=== PATIENT | female | born 1985 | race Caucasian/White ===

== ENCOUNTER → 2018-02-23 08:41 | Outpatient (CLI) | payer OTHER, SELFPAY | PROVIDERS: Visit Provider Physician Assistant | DX: N30.01 Acute cystitis with hematuria (principal) | CPT/HCPCS: 87086 ==

== ENCOUNTER 2020-11-01 19:04 | Emergency (ER) | payer OTHER, SELFPAY ==
[2020-11-01] VITALS (8 sets, daily range): BP systolic 119–129; BP diastolic 75–83; PULSE 79–97; RESP 0–23; TEMP 36.3; O2SAT 100
--- NOTE | 2020-11-01 19:18 | DI.RAD.S_ITS ---
PROCEDURE: XR CHEST 1V INDICATIONS: chest pain TECHNIQUE: One view of the chest was acquired. COMPARISON: None. FINDINGS: Surgical changes and devices: None. Lungs and pleura: Lungs are clear. No pleural effusions or pneumothorax. Mediastinum: Mediastinal contours appear normal. Heart size is normal. Bones and chest wall: No suspicious bony lesions. Overlying soft tissues appear unremarkable. IMPRESSION: No acute disease. Dictated by: Pradeep Guillen M.D. on 11/01/2020 at 19:50 Approved by: Pradeep Guillen M.D. on 11/01/2020 at 19:51
--- NOTE | 2020-11-01 19:30 | ED.CHESTPAIN ---
HPI - Chest Pain General Chief Complaint: Chest Pain Stated Complaint: chest pain, hurts to breath, cant take full breath Time Seen by Provider: 11/01/20 19:09 Source: patient Mode of arrival: Ambulatory Limitations: no limitations History of Present Illness HPI narrative: 35-year-old female nonsmoker without significant medical history presents with her in the chief complaint of ongoing left anterior chest pain which has been present for at least the past week or so. She states her pain is made worse by deep breaths, palpation as well as leaning forward. She states that improves with rest. She states the pain is sharp and stabbing and very reproducible. She states at its most the pain is a 7/10, she denies any radiation of her discomfort. She denies associated symptoms such as dizziness, weakness or lightheadedness. She has had no fever, chills nor hemoptysis. She denies recent travel, history of blood clot or any type of cancer. She denies any injury or overuse. She has not recently been ill with any viral upper respiratory infection Related Data Previous Rx's Medication Instructions Recorded ketorolac 10 mg PO Q6H PRN #14 tab 11/01/20 prednisone See Rx Instructions .ROUTE 11/01/20 .COMPLEX #30 tab Allergies Allergy/AdvReac Type Severity Reaction Status Date / Time No Known Drug Allergies Allergy Verified 11/01/20 19:17 Review of Systems Constitutional Constitutional: Denies chills, Denies fatigue, Denies fever(s), Denies frequent falls, Denies lethargy and Denies weakness Eyes Eyes: Denies change in vision, Denies eye discharge, Denies irritation and Denies loss of vision ENT Ears, Nose, Mouth, and Throat: Denies change in voice, Denies dizziness, Denies neck pain, Denies sore throat and Denies throat swelling Cardiovascular Cardiovascular: Reports chest pain, Denies irregular heart rhythm, Denies lightheadedness, Denies palpitations, Denies dyspnea, Denies dyspnea on exertion and Denies orthopnea Respiratory Respiratory: Denies cough, Denies dyspnea, Denies dyspnea on exertion and Denies wheezing Gastrointestinal Gastrointestinal: Denies abdominal pain, Denies change in bowel habits, Denies diarrhea, Denies nausea and Denies vomiting Musculoskeletal Musculoskeletal: Denies neck pain and Denies numbness Integumentary/Breasts Skin/Breast: Denies pruritus, Denies erythema, Denies rash and Denies wounds Neurologic Neurologic: Denies behavioral changes, Denies confusion, Denies dizziness, Denies frequent falls, Denies loss of vision, Denies numbness and Denies weakness Psychiatric Psychiatric: Denies anxiety, Denies behavioral changes, Denies confusion, Denies depression, Denies homicidal ideation and Denies suicidal ideation Endocrine Endocrine: Denies fatigue, Denies flushing and Denies palpitations Hematologic/Lymphatic Hematologic/Lymphatic: Denies easy bruising Allergic/Immunologic Allergic/Immunologic: Denies urticaria, Denies throat swelling and Denies wheezing Patient History Social History Smoking Status: Never smoker Smoking Status: Never smoker alcohol intake frequency: other Substance Use Type: does not use Exam Narrative Exam Narrative: GENERAL: [35] year old patient appears stated age. Well-nourished, well-developed patient, in mild distress. Anxious, tearful, rubbing her left anterior chest, leaning forward on the cart HEAD: Atraumatic. Normocephalic. EYES: Pupils equal round and reactive. Extraocular motions intact. No scleral icterus. No injection or drainage. ENT: Nose without bleeding, purulent drainage. Throat without erythema, tonsillar hypertrophy or exudate. Airway patent. NECK: Trachea midline. Non tender CARDIOVASCULAR: Regular rate and rhythm without murmurs, gallops, or rubs. RESPIRATORY: Clear to auscultation. Breath sounds equal bilaterally. No wheezes, rales, or rhonchi. GASTROINTESTINAL: Abdomen soft, non-tender, nondistended. EXTREMITIES: No edema or joint tenderness. BACK: Nontender without deformity or crepitance. No flank tenderness. NEURO: AOx3. SKIN: No rash or erythema of visible areas Initial Vital Signs Initial Vital Signs: Vital Signs Temperature 97.4 F L 11/01/20 19:13 Pulse Rate 97 H 11/01/20 19:13 Respiratory Rate 20 11/01/20 19:13 Blood Pressure 129/75 11/01/20 19:13 Pulse Oximetry 100 11/01/20 19:13 Scores HEART Score Heart Score history: Slightly Suspicious Heart Score EKG: Normal Heart Score Age: < 45 years old Heart Score risk factors: No known risk factors Heart Score troponin: < or = to normal limit Heart Score Total: 0 Course Orders Ordered: Discontinued Medications Sodium Chloride (Normal Saline 0.9%) 1,000 mls @ 1,000 mls/hr IV BOLUS ONE Stop: 11/01/20 20:30 Last Admin: 11/01/20 19:53 Dose: Not Given Documented by: CHARLIE Ketorolac Tromethamine (Ketorolac 60 Mg/2 Ml Vial) 30 mg IM NOW ONE Stop: 11/01/20 21:32 Last Admin: 11/01/20 21:49 Dose: 30 mg Documented by: DELANEY Prednisone (Prednisone 20 Mg Tablet) 40 mg PO NOW ONE Stop: 11/01/20 21:32 Last Admin: 11/01/20 21:49 Dose: 40 mg Documented by: DELANEY Vital Signs Vital signs: Vital Signs - 8 hr 11/01/20 19:13 Temperature 97.4 F L Pulse Rate 97 H Respiratory Rate 20 Blood Pressure 129/75 Pulse Oximetry 100 MDM - Chest Pain Lab Data Result diagrams: 11/01/20 20:21 11/01/20 20:21 Labs: Lab Results 11/01/20 11/01/20 11/01/20 Range/Units 20:21 20:21 20:21 WBC 7.7 (4.5-11.0) X10^3/uL RBC 5.26 H (4.0-5.2) X10^6/uL Hgb 15.7 (12.0-16.0) g/dL Hct 45.5 (36-46) % MCV 86.5 (80-100) fL MCH 29.9 (26-34) PG MCHC 34.5 (30-36) % RDW 14.4 (11.6-14.8) % Plt Count 271 (150-400) X10^3/uL Neut % (Auto) 53.0 (50-75) % Lymph % (Auto) 34.9 (25-40) % [place] % (Auto) 8.2 (3-14) % Eos % (Auto) 3.1 (2-4) % Baso % (Auto) 0.8 (0-2) % Neut # (Auto) 4100 (5032-3118) /uL Lymph # (Auto) 2700 (2230-2982) /uL [place] # (Auto) 600 (0-900) /uL Eos # (Auto) 200 (0-450) /uL Baso # (Auto) 100 (0-100) /uL PT 12.5 (10.1-12.7) SECONDS INR 1.1 (0.9-1.3) APTT 34 (26.4-36.2) SECONDS D-Dimer (<230) ng/mL Sodium 138 (137-145) mmol/L Potassium 3.8 (3.4-5.1) mmol/L Chloride 101 (98-107) mmol/L Carbon Dioxide 27 (22-32) mmol/L BUN 15 (7-17) mg/dL Creatinine 0.54 (0.52-1.04) mg/dL Estimated GFR > 60.0 (>60) mL/min BUN/Creatinine Ratio 27.8 H (6-22) Glucose 88 (70-100) mg/dL Calcium 9.7 (8.4-10.2) mg/dL Total Bilirubin 0.3 (0.2-1.3) mg/dL AST 29 (14-36) IU/L ALT 19 (<35) IU/L Alkaline Phosphatase 94 (38-126) U/L Total Creatine Kinase 54 (30-135) U/L CK-MB (CK-2) TNP CK-MB (CK-2) Rel Index TNP Troponin I < 0.012 (0.01-0.034) ng/mL C-Reactive Protein (<1.0) mg/dL Total Protein 8.0 (6.3-8.2) g/dL Albumin 4.3 (3.5-5.0) g/dL Globulin 3.7 (1.7-4.1) g/dL Albumin/Globulin Ratio 1.2 (1.0-2.8) Lipase 54 (23-300) U/L 11/01/20 11/01/20 Range/Units 20:21 20:21 WBC (4.5-11.0) X10^3/uL RBC (4.0-5.2) X10^6/uL Hgb (12.0-16.0) g/dL Hct (36-46) % MCV (80-100) fL MCH (26-34) PG MCHC (30-36) % RDW (11.6-14.8) % Plt Count (150-400) X10^3/uL Neut % (Auto) (50-75) % Lymph % (Auto) (25-40) % [place] % (Auto) (3-14) % Eos % (Auto) (2-4) % Baso % (Auto) (0-2) % Neut # (Auto) (9468-5792) /uL Lymph # (Auto) (7141-9522) /uL [place] # (Auto) (0-900) /uL Eos # (Auto) (0-450) /uL Baso # (Auto) (0-100) /uL PT (10.1-12.7) SECONDS INR (0.9-1.3) APTT (26.4-36.2) SECONDS D-Dimer 258 H (<230) ng/mL Sodium (137-145) mmol/L Potassium (3.4-5.1) mmol/L Chloride (98-107) mmol/L Carbon Dioxide (22-32) mmol/L BUN (7-17) mg/dL Creatinine (0.52-1.04) mg/dL Estimated GFR (>60) mL/min BUN/Creatinine Ratio (6-22) Glucose (70-100) mg/dL Calcium (8.4-10.2) mg/dL Total Bilirubin (0.2-1.3) mg/dL AST (14-36) IU/L ALT (<35) IU/L Alkaline Phosphatase (38-126) U/L Total Creatine Kinase (30-135) U/L CK-MB (CK-2) CK-MB (CK-2) Rel Index Troponin I (0.01-0.034) ng/mL C-Reactive Protein 5.0 H (<1.0) mg/dL Total Protein (6.3-8.2) g/dL Albumin (3.5-5.0) g/dL Globulin (1.7-4.1) g/dL Albumin/Globulin Ratio (1.0-2.8) Lipase (23-300) U/L Imaging Data Chest x-ray: Radiologist's Impression: [address] [id number] ReportSigned Patient: Sita Arriaza MMR#: [id number]: 1985Acct:[id number]/Sex: 35 / FDate of Service: 11/01/20Loc: EDAccession Number: [id number] Procedure: XR chest 1V Ordering Provider: Michael Jarquin D.O. PROCEDURE: XR CHEST 1V INDICATIONS: chest pain TECHNIQUE: One view of the chest was acquired. COMPARISON: None. FINDINGS: Surgical changes and devices: None. Lungs and pleura: Lungs are clear. No pleural effusions or pneumothorax. Mediastinum: Mediastinal contours appear normal. Heart size is normal. Bones and chest wall: No suspicious bony lesions. Overlying soft tissues appear unremarkable. IMPRESSION: No acute disease. Dictated by: Pradeep Guillen M.D. on 11/01/2020 at 19:50 Approved by: Pradeep Guillen M.D. on 11/01/2020 at 19:51 MDM Narrative Medical decision making narrative: Multiple diagnoses considered including cardiac ischemia which is thought unlikely given lack of provocation, radiation, squeezing type pain, elevated troponin, ischemic changes on EKG. Pulmonary embolism considered but thought unlikely given negative D-dimer. Pericarditis thought likely given sharp, stabbing reproducible pain with deep breath, worse laying flat improved sitting forward. There are no widespread ST changes, LA depressions however. Other diagnoses such as pneumothorax, aortic dissection, versus other considered but thought unlikely given patient's history, exam and diagnostic findings. Extensive return precautions given to the patient and questions answered to their apparent satisfaction. Discharge Plan Departure Patient Disposition: Home Clinical Impression: Atypical chest pain Instructions: DI for Atypical Chest Pain Activity Restrictions/Additional Instructions: *You have been diagnosed with [atypical chest pain. Physical exam, labs, imaging and EKG are most consistent with an inflammatory condition, possibly pericarditis.] *What to do: *Take medications as directed: Given the NSAIDs have not helped too much I have added a course of steroids which has been sent to your pharmacy *Follow up with your primary care provider in 2-3 days, call for an appointment. Let them know you were seen in the Emergency Department and that we ask that you be seen in follow up *Return to ER if you should have any new, worsening or concerning symptoms, such as [shortness of breath, fever, shaking chills, coughing up blood or other bothersome symptoms] Prescriptions: New prednisone 10 mg tablet See Rx Instructions .ROUTE .COMPLEX Qty: 30 RF: 0 ketorolac 10 mg tablet 10 mg PO Q6H PRN (Reason: pain) Qty: 14 RF: 0
[2020-11-01 20:29] LABS: Add Manual Diff / Slide Review NO; Basophils Absolute Auto 100 /uL (0-100); Basophils Percent Auto 0.8 % (0-2); Eosinophils Absolute Auto 200 /uL (0-450); Eosinophils Percent Auto 3.1 % (2-4); Hematocrit 45.5 % (36-46); Hemoglobin 15.7 g/dL (12.0-16.0); Lymphocytes Absolute Auto 2700 /uL (1100-4500); Lymphocytes Percent Auto 34.9 % (25-40); Mean Corpuscular HGB Conc 34.5 % (30-36); Mean Corpuscular Hemoglobin 29.9 PG (26-34); Mean Corpuscular Volume 86.5 fL (80-100); Monocytes Absolute Auto 600 /uL (0-900); Monocytes Percent Auto 8.2 % (3-14); Neutrophils Absolute Auto 4100 /uL (1500-7000); Platelet Count 271 X10^3/uL (150-400); Red Blood Cell Count 5.26 X10^6/uL (4.0-5.2); Red Cell Distribution Width 14.4 % (11.6-14.8); White Blood Cell Count 7.7 X10^3/uL (4.5-11.0)
[2020-11-01 20:39] LABS: INR 1.1 (0.9-1.3); Prothrombin Time 12.5 SECONDS (10.1-12.7)
[2020-11-01 20:42] LABS: PTT Partial Thromboplastin Tim 34 SECONDS (26.4-36.2)
[2020-11-01 20:45] LABS: Alanine Aminotransferase 19 IU/L (<35); Albumin 4.3 g/dL (3.5-5.0); Albumin Globulin Ratio 1.2 (1.0-2.8); Alkaline Phosphatase 94 U/L (38-126); Aspartate Aminotransferase 29 IU/L (14-36); BUN Creatinine Ratio 27.8 (6-22); Bilirubin Total 0.3 mg/dL (0.2-1.3); Blood Urea Nitrogen 15 mg/dL (7-17); Calcium 9.7 mg/dL (8.4-10.2); Carbon Dioxide 27 mmol/L (22-32); Chloride 101 mmol/L (98-107); Creatine Kinase 54 U/L (30-135); Estimated Glomerular Filt Rate > 60.0 mL/min (>60); Globulin 3.7 g/dL (1.7-4.1); Glucose 88 mg/dL (70-100); HEMOLYSIS < 15 (0-50); Lipase 54 U/L (23-300); Potassium 3.8 mmol/L (3.4-5.1); Sodium 138 mmol/L (137-145)
[2020-11-01 20:53] LABS: D Dimer 258 ng/mL (<230)
[2020-11-01 20:57] LABS: Troponin I < 0.012 ng/mL (0.01-0.034)
[2020-11-01] MEDS: predniSONE 20 MG TABLET 40 MG PO (21:49)
[2020-11-01] MEDS: KETOROLAC 60 MG/2 ML VIAL 30 MG IM (21:49)
== END 2020-11-01 22:06 | disposition home or self-care (01) ==
PROVIDERS: Emergency Provider Emergency Medicine
DX: R07.89 Other chest pain (principal)
CPT/HCPCS: 71045; 80053; 82550; 83690; 84484; 85025; 85379; 85610; 85730; 86140; 93005; 93010; 96372; 99284; J1885

== ENCOUNTER → 2025-02-02 11:22 | Outpatient (CLI) | payer OTHER, SELFPAY | PROVIDERS: Visit Provider Registered Nurse | DX: R30.0 Dysuria (principal) | CPT/HCPCS: 87086 ==

== ENCOUNTER 2025-02-02 12:05 | Emergency (ER) | payer OTHER, SELFPAY ==
[2025-02-02] VITALS (7 sets, daily range): BP systolic 98–125; BP diastolic 1–81; PULSE 69–95; RESP 16; TEMP 36.5; O2SAT 99–100; BMI 25.4
[2025-02-02] MEDS: ONDANSETRON 4 MG/2 ML INJ IV (12:39)
[2025-02-02] MEDS: KETOROLAC 30 MG/ML VIAL 15 MG IV (12:39)
[2025-02-02 12:45] LABS: Add Manual Diff / Slide Review NO; Hematocrit 42.6 % (36-46); Hemoglobin 15.0 g/dL (12.0-16.0); Lymphocytes Absolute Auto 2800 /uL (1100-4500); Mean Corpuscular HGB Conc 35.2 % (30-36); Mean Corpuscular Hemoglobin 31.0 PG (26-34); Mean Corpuscular Volume 88.0 fL (80-100); Platelet Count 253 X10^3/uL (150-400)
[2025-02-02 12:59] LABS: Alanine Aminotransferase 16 IU/L (<35); Albumin 4.8 g/dL (3.5-5.0); Albumin Globulin Ratio 1.5 (1.0-2.8); Alkaline Phosphatase 56 U/L (38-126); Blood Urea Nitrogen 9 mg/dL (7-17); Calcium 9.5 mg/dL (8.4-10.2); Carbon Dioxide 22 mmol/L (22-32); Chloride 104 mmol/L (98-107); Estimated Glomerular Filt Rate > 60 mL/min (>60); Globulin 3.3 g/dL (1.7-4.1); Glucose 83 mg/dL (70-99); HEMOLYSIS 94 (0-50); Potassium 4.6 mmol/L (3.4-5.1); Sodium 137 mmol/L (137-145); Total Protein 8.1 g/dL (6.3-8.2)
--- NOTE | 2025-02-02 15:03 | DI.CT.S_ITS ---
PROCEDURE: CT KIDNEY URETER BLADDER (KUB) INDICATIONS: flank pain, hx of stones TECHNIQUE: Axial sections were acquired from the lung bases to the pubic symphysis. Coronal and sagittal reformats were performed. For radiation dose reduction, the following was used: automated exposure control, adjustment of mA and/or kV according to patient size. COMPARISON: None. FINDINGS: Image quality: Diagnostic. Lower Chest: No significant findings. URINARY: Right Kidney: No stones or hydronephrosis. Right Ureter: No hydroureter. Left Kidney: No stones or hydronephrosis. Left Ureter: No hydroureter. Bladder: Normal wall thickness. No stones. ABDOMEN: Liver: No contour-deforming solid mass. Gallbladder: No radiopaque gallstones or wall thickening. Biliary ducts: No biliary dilation. Pancreas: No ductal dilation. Spleen: Size is within normal limits. Adrenal Glands: No adrenal nodules. Stomach and Bowel: Normal colonic caliber, without significant wall thickening. No dilated loops of small bowel are seen. A normal appendix is noted. Peritoneum: No abnormal intraperitoneal fluid. No free air. Ventral Wall: No hernia. Abdominal Nodes: No enlarged retroperitoneal or mesenteric lymph nodes. Vessels: Aorta and inferior vena cava are normal in size. PELVIS: Pelvic Organs: The IUD is seen at its expected location. Pelvic Nodes: Unremarkable. Miscellaneous: No inguinal hernias are seen. Bones: Unremarkable. IMPRESSION: No obstructing stones or hydronephrosis. Normal appendix. Additional findings: IUD Dictated by: Adryan John M.D. on 02/02/2025 at 15:52 Approved by: Adryan John M.D. on 02/02/2025 at 15:53
[2025-02-02 15:49] LABS: Appearance Urine UA CLEAR; Bilirubin Urine UA NEGATIVE (NEGATIVE); Color Urine UA YELLOW; Glucose Urine UA NEGATIVE (Negative); Ketones Urine UA NEGATIVE (NEGATIVE); Leukocyte Esterase Urine UA NEGATIVE (NEGATIVE); Nitrite Urine UA NEGATIVE (Negative); Occult Blood Urine UA TRACE-INTACT (Negative); Protein Urine UA NEGATIVE (Negative); Specific Gravity Urine UA <=1.005 (1.000-1.035); Urobilinogen Urine UA 0.2 E.U./dL (0.2); pH Urine UA 6.0 (4.5-8.0)
[2025-02-02 15:55] LABS: Culture Indicated Urine Cult Not Indicated
--- NOTE | 2025-02-02 16:39 | ED_ITS ---
HPI - Back Pain/Injury General Chief Complaint: Back Pain/Injury Stated Complaint: sent from [facility] for possible kidney stones Time Seen by Provider: 02/02/25 12:31 Source: patient History of Present Illness HPI Narrative: Pt presents to the ER with a past medical history significant for kidney stones requiring lithotripsy 16 years ago. The patient, Sita, a 39-year-old female, reports left-sided pain that started last night. She describes the pain as located almost underneath my rib on the left side, not yet extending to the lower abdomen. The patient also complains of nausea without actual vomiting and reports some diarrhea. She initially experienced burning with urination, but this symptom improved after taking Azo. Sita consulted with a tele doctor last night who prescribed Macrobid for a suspected UTI. She took the first dose this morning. The patient has an IUD in place for control and reports that her last menstrual period started on Wednesday. She denies fever, vaginal discharge, cough, or shortness of breath. Sita reports occasional alcohol use during holidays but denies regular alcohol consumption or recreational drug use. Related Data Home Medications ?Medication ?Instructions ?Recorded ?Confirmed levothyroxine 50 mcg tablet 50 mcg PO QAM 02/02/25 metformin 500 mg tablet,extended mg PO 02/02/25 release 24 hr nitrofurantoin 1 cap PO BID 02/02/25 monohydrate/macrocrystals 100 mg capsule phentermine 37.5 mg tablet 18.75 mg PO DAILY 02/02/25 02/02/25 Previous Rx's ?Medication ?Instructions ?Recorded cyclobenzaprine 10 mg tablet 10 mg PO TID PRN muscle s pasm #15 02/02/25 tabs Allergies Allergy/AdvReac Type Severity Reaction Status Date / Time No Known Drug Allergies Allergy Verified 02/02/25 12:14 Patient History Social History Smoking Status: Never smoker Smoking Status: Never smoker alcohol intake frequency: other Exam Narrative Exam Narrative: VS as noted above Focused physical exam as follows: General: Well developed, well nourished, no acute distress HEENT: pink palpebral conjunctiva, anicteric sclera, MANUELA, moist mucous membranes, no JVD, no cervical lymphadenopathy Lungs: no respiratory distress, clear to auscultation without wheezes or crackles; equal breath sounds Heart: normal rate, regular rhythm, no appreciable murmurs Abdomen: soft, nontender, no rebound or rigidity Musculoskeletal: no gross deformities with full ROM in all extremities, no pedal edema; mild tenderness over the Left flank/iliocostalis region but none over the C, T or Lspine Skin: pink, warm; no rashes Neuro:? AAOx3, GCS 15, nonfocal exam Psyche: no SI/HI, normal affect Initial Vital Signs Initial Vital Signs: Vital Signs Temperature 97.7 F 02/02/25 12:14 Pulse Rate 95 H 02/02/25 12:14 Respiratory Rate 16 02/02/25 12:14 Blood Pressure 114/1 L 02/02/25 12:14 Pulse Oximetry 100 02/02/25 12:14 Oxygen Delivery Method Room Air 02/02/25 12:14 Course Orders Ordered: Discontinued Medications Hydromorphone HCl (Hydromorphone Hcl 0.5 Mg/0.5 Ml Syringe) 0.5 mg IV NOW ONE Stop: 02/02/25 15:03 Last Admin: 02/02/25 15:14 Dose: 0.5 mg Documented By: SIMON Ketorolac Tromethamine (Ketorolac 30 Mg/Ml Vial) 15 mg IV NOW ONE Stop: 02/02/25 12:25 Last Admin: 02/02/25 12:39 Dose: 15 mg Documented By: JACOBO Ondansetron HCl (Ondansetron 4 Mg/2 Ml Inj) 4 mg IV NOW ONE Stop: 02/02/25 12:25 Last Admin: 02/02/25 12:39 Dose: 4 mg Documented By: JACOBO Vital Signs Vital signs: Vital Signs - 8 hr 02/02/25 12:14 02/02/25 14:52 02/02/25 14:52 Temperature 97.7 F Pulse Rate 95 H 89 Respiratory Rate 16 Blood Pressure 114/1 L 125/70 Pulse Oximetry 100 100 Oxygen Delivery Method Room Air 02/02/25 15:00 02/02/25 15:00 02/02/25 15:30 Temperature Pulse Rate 82 Respiratory Rate Blood Pressure 124/81 106/79 Pulse Oximetry 100 Oxygen Delivery Method 02/02/25 15:30 Temperature Pulse Rate 74 Respiratory Rate 16 Blood Pressure Pulse Oximetry 99 Oxygen Delivery Method [facility] - Back Pain/Injury Lab Data 02/02/25 12:36 02/02/25 12:36 Labs: Lab Results 02/02/25 02/02/25 Range/Units 12:36 12:42 WBC 8.3 (4.5-11.0) X10^3/uL RBC 4.84 (4.0-5.2) X10^6/uL Hgb 15.0 (12.0-16.0) g/dL Hct 42.6 (36-46) % MCV 88.0 (80-100) fL MCH 31.0 (26-34) PG MCHC 35.2 (30-36) % RDW 13.5 (11.6-14.8) % Plt Count 253 (150-400) X10^3/uL Neut % (Auto) 58.6 (50-75) % Lymph % (Auto) 33.3 (25-40) % [place] % (Auto) 5.6 (3-14) % Eos % (Auto) 1.8 L (2-4) % Baso % (Auto) 0.7 (0-2) % Neut # (Auto) 4900 (0780-2082) /uL Lymph # (Auto) 2800 (7468-6983) /uL [place] # (Auto) 500 (0-900) /uL Eos # (Auto) 100 (0-450) /uL Baso # (Auto) 100 (0-100) /uL Sodium 137 (137-145) mmol/L Potassium 4.6 (3.4-5.1) mmol/L Chloride 104 (98-107) mmol/L Carbon Dioxide 22 (22-32) mmol/L BUN 9 (7-17) mg/dL Creatinine 0.56 (0.52-1.04) mg/dL Estimated GFR > 60 (>60) mL/min BUN/Creatinine Ratio 16.1 (6-22) Glucose 83 (70-99) mg/dL Calcium 9.5 (8.4-10.2) mg/dL Total Bilirubin 1.1 (0.2-1.3) mg/dL AST 29 (14-36) IU/L ALT 16 (<35) IU/L Alkaline Phosphatase 56 (38-126) U/L Total Protein 8.1 (6.3-8.2) g/dL Albumin 4.8 (3.5-5.0) g/dL Globulin 3.3 (1.7-4.1) g/dL Albumin/Globulin Ratio 1.5 (1.0-2.8) Urine Color Yellow Urine Appearance Clear Urine pH 6.0 (4.5-8.0) Ur Specific [place] <=1.005 (1.000-1.035) Urine Protein Negative (Negative) Urine Glucose (UA) Negative (Negative) g/dL Urine Ketones Negative (NEGATIVE) Urine Occult Blood Trace-intact (Negative) Urine Nitrate Negative (Negative) Urine Bilirubin Negative (NEGATIVE) Urine Urobilinogen 0.2 (0.2) E.U./dL Ur Leukocyte Esterase Negative (NEGATIVE) Urine RBC 0-1/hpf (0-5/HPF) Urine WBC 0-1/hpf (0-5/HPF) Ur Squamous Epith Cells 0-1 /hpf (0-5/HPF) Urine Bacteria Occasional (0-1) (None) Ur Culture Indicated? Cult not indicated Vol Urine Centrifuged 10ml (spun) Urine Test Negative (Negative) Imaging Data CT KUB: Radiologist's Impression: IMPRESSION: No obstructing stones or hydronephrosis. Normal appendix. Additional findings: IUD MDM Narrative Medical decision making narrative: HPI, PMHx, PSHx, Medication list, Allergies, ROS and Focused exam were reviewed above.? Differential diagnosis as noted above.? Social determinants affecting care considered (as listed).? All of these were taken into consideration warranting above listed work up.? Consultations as deemed necessary were documented above (if listed). Labs (if ordered and noted above) were independently reviewed by me. Imaging studies (if ordered and noted above) were independently reviewed by me EKG (if noted above) was independently reviewed by me External documents (if reviewed) are documented above Initial VS noted above.? PMHx, PSHx, Medication list, social history reviewed as noted above. Differential diagnosis considered include (but not limited to) the following: ureteral calculus, UTI, pyelo, lumbar strain/sprain, pleurisy, pneumonia, gastritis, gastric ulcer, pancreatitis, cholelithiasis/cystitis, constipation, colitis, diverticulitis, ovarian cyst/torsion, abdominal neoplasm, shingles, costochondritis Pt interviewed and examined. Toradol IV and Zofran given while awaiting studies. Labs unremarkable. Considering hx of kidney stones and severity of symptoms, CT KUB ordered - unremarkable. Discussed work up thus far and plan of care. Advised to just finish course of antibiotics for presumed UTI and will prescribe Flexeril for muscle spasms. Stable for discharge with return precautions. Discharge Plan Departure Patient Disposition: Home Clinical Impression: Acute left flank pain Instructions: DI for Low Back Pain Activity Restrictions/Additional Instructions: Work up today was generally reassuring with no ureteral stones or signs of a kidney infection or obvious intraabdominal process causing your pain. I would go ahead and finish antibiotics you were recently prescribed. Take Tylenol or Ibuprofen as needed for pain. Use Flexeril or heating pad for muscle spasms. Follow up with your regular doctor as needed. Return to the ER if with worsening symptoms. Prescriptions: New cyclobenzaprine 10 mg tablet 10 mg PO TID PRN (Reason: muscle spasm) Qty: 15 0RF No Action phentermine 37.5 mg tablet 18.75 mg PO DAILY levothyroxine 50 mcg tablet 50 mcg PO QAM metformin 500 mg tablet extended release 24 hr PO nitrofurantoin monohyd/m-cryst 100 mg capsule 1 cap PO BID Referrals: Miscellaneous,Doctor, [Primary Care Provider, Medical] Stand Alone Forms: Patient Portal/API
== END 2025-02-02 17:26 | disposition home or self-care (01) ==
PROVIDERS: Emergency Provider Emergency Medicine
DX: R10.9 Unspecified abdominal pain (principal); R30.0 Dysuria; Z97.5 Presence of (intrauterine) contraceptive device; Z87.442 Personal history of urinary calculi
CPT/HCPCS: 36415; 74176; 80053; 81001; 81025; 85025; 87086; 96374; 96375; 99284; J1171; J1885; J2405